=== PATIENT | male | born 2000 | race Caucasian/White ===

== ENCOUNTER 2023-11-23 12:29 | Emergency (ER) | payer SELFPAY ==
[2023-11-23 12:40] VITALS: BP 132/87; PULSE 73; RESP 18; TEMP 36.8; O2SAT 99; BMI 27.3
--- NOTE | 2023-11-23 12:50 | ED.DENTAL1 ---
HPI - Dental/Oral General Chief complaint: Dental/Oral Stated complaint: DENTAL PAIN Time Seen by Provider: 11/23/23 12:50 Source: patient Mode of arrival: walk-in Limitations: no limitations History of Present Illness HPI Narrative: patient here with a right mandibular toothache. About two years ago he has similar problem. He was actually in the process getting the tooth pulled but had an untoward reaction to his lidocaine local. This is the 1st bothered him since that time. He is not diabetic and has no immunocompromising diseases. He is not currently on any antibiotics. Related Data Home Medications Medication Instructions Recorded Confirmed No Known Home Medications 11/23/23 11/23/23 Allergies Allergy/AdvReac Type Severity Reaction Status Date / Time No Known Drug Allergies Allergy Verified 11/23/23 12:40 PFSH PFS Social History Smoking status: Current every day smoker Exam Narrative Exam Narrative: problem focused examination shows well-hydrated well-nourished pleasant young man. His mouth and oral cavity were examined. He has a near totally rotten tooth on the bottom right side premolar. There is no swelling the floor the mouth the gingival area does not show any abscess. Tongue protrudes in midline. There is no stridor or drooling. Phonation Bel[place]ian deglutition are normal. There is no facial swelling at all. Constitutional Vital Signs, click to edit/add: Last Vital Signs Temp 98.3 F 11/23/23 12:40 Pulse 73 11/23/23 12:40 Resp 18 11/23/23 12:40 BP 132/87 11/23/23 12:40 Pulse Ox 99 11/23/23 12:40 Course Vital Signs Vital signs: Vital Signs Temperature 98.3 F 11/23/23 12:40 Pulse Rate 73 11/23/23 12:40 Respiratory Rate 18 11/23/23 12:40 Blood Pressure 132/87 11/23/23 12:40 Pulse Oximetry 99 11/23/23 12:40 Temperature 98.3 F 11/23/23 12:40 Pulse Rate 73 11/23/23 12:40 Respiratory Rate 18 11/23/23 12:40 Blood Pressure 132/87 11/23/23 12:40 Pulse Oximetry 99 11/23/23 12:40 MDM - Dental/Oral MDM Narrative Medical decision making narrative: patient will be placed on antibiotics and is given a follow-up with a local dentist when his insurance kicks in again. No evidence of complications at this time. Discharge Plan Discharge Chief Complaint: Dental/Oral Clinical Impression: Toothache Patient Disposition: Home, Self-Care Time of Disposition Decision: 12:56 Prescriptions / Home Meds: No Action No Known Home Medications Additional Instructions: clindamycin/follow-up with local dentist. Warm saline rinses Stand Alone Forms: Portal Instructions Referrals: Physician,Non-Staff, MD [Primary Care Provider] - 1 week
[2023-11-23] MEDS: BENZOCAINE 30 ML, lidocaine HCL 15 ML MM (13:01)
== END 2023-11-23 13:03 | disposition home or self-care (01) ==
PROVIDERS: Emergency Provider Emergency Medicine Emergency Medical Services
DX: K08.89 Other specified disorders of teeth and supporting structures (principal); F17.210 Nicotine dependence, cigarettes, uncomplicated
CPT/HCPCS: 99283

== ENCOUNTER 2025-03-18 14:18 | Emergency (ER) | payer BC, SELFPAY ==
[2025-03-18 14:23] VITALS: BP 163/91; PULSE 68; TEMP 36.8; O2SAT 98; BMI 28.7
--- NOTE | 2025-03-18 14:33 | ED_ITS ---
HPI HPI - General Adult General Chief complaint: Dental/Oral Stated complaint: DENTAL ISSUE Time Seen by Provider: 03/18/25 14:20 Source: patient Mode of arrival: walk-in History of Present Illness HPI narrative: 24-year-old male to the emergency department with chief complaint of dental pain. Patient reports he has had pain in his right posterior lower molar for some time. He intended to get it fixed but had allergic reaction to lidocaine. He reports that he has been scared to go to the dentist since. He reports that over the last few days he has had increasing pain in the tooth. He intends to follow-up with dentistry but wants to get on an antibiotic and some ibuprofen in the meantime. Otherwise at his baseline health. No immunocompromising conditions. No swelling, redness or warmth of the face or neck. Related Data Previous Rx's ?Medication ?Instructions ?Recorded ibuprofen 800 mg tablet 800 mg PO Q8H PRN pain #20 t abs 03/18/25 penicillin V potassium 500 mg 500 mg PO Q6H 7 days #28 tabs 03/18/25 tablet Allergies Allergy/AdvReac Type Severity Reaction Status Date / Time No Known Drug Allergies Allergy Verified 11/23/23 12:40 Review of Systems ROS Status of ROS 10 or more systems reviewed and unremark able except as noted in history and below PFSH PFSH Social History Smoking status: Current every day smoker Little interest or pleasure in doing things: not at all Feeling down, depressed, or hopeless: not at all Exam Narrative Exam Narrative: VITALS: I have reviewed the triage vital signs. GENERAL: Well developed, well appearing adult in no acute distress. NEURO: Alert and oriented. Moves all extremities. Face is symmetric and expressive. EYES: PERRL. No scleral icterus or conjunctival injection. No discharge. HENT: Normocephalic, atraumatic. Hearing is grossly intact. Nares grossly patent and without discharge. Mucous membranes moist. Generally poor dentition. #31 painful to percussion, significant decay. No abscess NECK: No JVD. Patient moves neck without restriction. EXTREMITIES: Symmetric muscle bulk. No joint swelling. No clubbing, cyanosis, or deformity. SKIN: Warm and dry. Normal turgor. No rash or lesions appreciated. PSYCH: Mood, affect, and interaction is appropriate to the setting. Constitutional Vital Signs, click to edit/add: Last Vital Signs Temp 98.2 F 03/18/25 14:23 Pulse 68 03/18/25 14:23 Resp 18 03/18/25 14:23 BP 163/91 H 03/18/25 14:23 Pulse Ox 98 03/18/25 14:23 Course Vital Signs Vital signs: Vital Signs Temperature 98.2 F 03/18/25 14:23 Pulse Rate 68 03/18/25 14:23 Respiratory Rate 18 03/18/25 14:23 Blood Pressure 163/91 H 03/18/25 14:23 Pulse Oximetry 98 03/18/25 14:23 Temperature 98.2 F 03/18/25 14:23 Pulse Rate 68 03/18/25 14:23 Respiratory Rate 18 03/18/25 14:23 Blood Pressure 163/91 H 03/18/25 14:23 Pulse Oximetry 98 03/18/25 14:23 Medical Decision Making MDM Narrative Medical decision making narrative: 24-year-old male to the emergency department chief complaint of dental pain. Vital stable, the patient is afebrile. No evidence of deep space infection or complication. Will place him on penicillin and ibuprofen. Follow-up with dentist, he already has plans on which when he was going to call. Return precautions were discussed. All questions were answered. The patient was discharged home. Medical Records Medical records reviewed: Yes I reviewed the patient's medical records Discharge Plan Discharge Chief Complaint: Dental/Oral Clinical Impression: Toothache Patient Disposition: Home, Self-Care Time of Disposition Decision: 14:31 Condition: Good Mode of Transportation: Private Vehicle Prescriptions / Home Meds: New ibuprofen 800 mg tablet 800 mg PO Q8H PRN (Reason: pain) Qty: 20 0RF penicillin V potassium 500 mg tablet 500 mg PO Q6H 7 Days Qty: 28 0RF Print Language: Sudanese Instructions: Toothache (ED) Additional Instructions: Call the office of your primary care doctor to arrange for follow-up within the above-stated timeframe. Your ED visit was focused on your acute issue and does not replace primary care. You should review your labs, imaging, and diagnoses from this ED visit with your primary care physician. There may be non-emergent/ incidental findings that need further evaluation. You should review your vital signs including blood pressure with your PCP. If you were prescribed medications you should discuss possible side-effects and drug interactions with your pharm acist. Call 911 or go to the nearest Emergency Department if you develop any new or worsening symptoms. Follow-up with a dentist within the next 7 days. Referrals: Physician,Non-Staff, MD [Primary Care Provider] - 1 week
[2025-03-18 14:38] VITALS: BP 136/86; PULSE 82; O2SAT 98
== END 2025-03-18 14:39 | disposition home or self-care (01) ==
PROVIDERS: Emergency Provider Student in an Organized Health Care Education/Training Program; PCP Family Medicine
DX: K08.89 Other specified disorders of teeth and supporting structures (principal); F17.200 Nicotine dependence, unspecified, uncomplicated
CPT/HCPCS: 99283

== ENCOUNTER 2025-04-15 14:14 | Emergency (ER) | payer BC, SELFPAY ==
[2025-04-15 14:20] VITALS: BP 144/97; PULSE 77; TEMP 36.9; O2SAT 98; BMI 25.8
--- NOTE | 2025-04-15 14:35 | ED_ITS ---
HPI - Nausea/Vomiting/Diarrhea General Chief complaint: Nausea/Vomiting/Diarrhea Stated complaint: DIARRHEA VOMITING Time Seen by Provider: 04/15/25 14:28 Source: patient Mode of arrival: walk-in History of Present Illness HPI Narrative: 24 year old male presents to the ED for diarrhea. Onset was about 3 days ago. Denies fever, chills, N/V, urinary symptoms. Reports low abd cramping. Denies recent travel. Denies recent antibiotic use. Related Data Home Medications ?Medication ?Instructions ?Recorded ?Confirmed No Known Home Medications 04/15/2501/08 Allergies Allergy/AdvReac Type Severity Reaction Status Date / Time No Known Drug Allergies Allergy Verified 11/23/23 12:40 Review of Systems ROS Constitutional Denies: fever or chills Ears, nose, mouth, and throat Denies: throat pain or neck pain Cardiovascular Denies: chest pain Respiratory Denies: shortness of breath Gastrointestinal Reports: abdominal pain and diarrhea; Denies: nausea or vomiting Genitourinary Denies: painful urination, urinary frequency or urinary urgency Musculoskeletal Denies: back pain Neurological Denies: headache or dizziness PFSH PFSH Social History Smoking status: Current every day smoker Little interest or pleasure in doing things: not at all Feeling down, depressed, or hopeless: not at all Exam Constitutional Vital Signs, click to edit/add: Last Vital Signs Temp 98.4 F 04/15/25 14:20 Pulse 77 04/15/25 14:20 Resp 16 04/15/25 14:20 BP 144/97 H 04/15/25 14:20 Pulse Ox 98 04/15/25 14:20 Common normals: no apparent distress and oriented x3 General appearance: cooperative HENMT Common normals: moist oral mucous membranes Eye Common normals: conjunctivae normal and no scleral icterus Neck & C-Spine Common normals: supple Respiratory Common normals: normal respiratory effort Effort & inspection: able to speak in complete sentences and symmetric chest movement Cardio Common normals: regular rate and regular rhythm GI Common normals: Normal to inspection, nondistended, normoactive bowel sounds present, soft to palpation and non-tender Neuro Common normals: oriented x3 and moves all extremities Sensorium/orientation: awake and alert Speech: speech normal Course Vital Signs Vital signs: Vital Signs Temperature 98.4 F 04/15/25 14:20 Pulse Rate 77 04/15/25 14:20 Respiratory Rate 16 04/15/25 14:20 Blood Pressure 144/97 H 04/15/25 14:20 Pulse Oximetry 98 04/15/25 14:20 Temperature 98.4 F 04/15/25 14:20 Pulse Rate 77 04/15/25 14:20 Respiratory Rate 16 04/15/25 14:20 Blood Pressure 144/97 H 04/15/25 14:20 Pulse Oximetry 98 04/15/25 14:20 MDM - Nausea/Vomiting/Diarrhea MDM Narrative Medical decision making narrative: CBC and CMP were unremarkable. Stool cultures were ordered. The patient was given IV fluids with improvement. Findings were discussed. Follow up with pcp for a recheck, further evaluation and treatment. Medical Records Attestation: I reviewed the patient's medical records. Lab Data Attestation: I reviewed the patient's lab results. Labs: Lab Results 04/15/25 Range/Units 14:50 WBC 7.0 (4.0-11.0) 10^3/uL RBC 5.67 (4.70-6.10) 10^6/uL Hgb 17.6 (14.0-18.0) g/dL Hct 47.9 (42.0-54.0) % MCV 84.5 (80.0-94.0) fL MCH 31.0 (25.9-34.0) pg MCHC 36.7 H (29.9-35.2) g/dL RDW 11.7 (11.0-15.0) % Plt Count 235 (150-450) 10^3/uL MPV 10.5 (9.5-13.5) fL Neut % (Auto) 68.3 (43.0-75.0) % Lymph % (Auto) 16.3 L (20.5-60.0) % [place] % (Auto) 13.3 H (1.7-12.0) % Eos % (Auto) 1.6 (0.9-7.0) % Baso % (Auto) 0.4 (0.2-2.0) % Neut # (Auto) 4.8 (1.4-6.5) 10^3/uL Lymph # (Auto) 1.1 L (1.2-3.8) 10^3/uL [place] # (Auto) 0.9 H (0.3-0.8) 10^3/uL Eos # (Auto) 0.1 (0.0-0.7) 10^3/uL Baso # (Auto) 0.0 (0.0-0.1) 10^3/uL Abs Immat Gran (auto) 0.01 (0.00-0.03) 10^3/uL Imm/Tot Granulo (auto) 0.1 (0.0-0.5) % Sodium 138 (136-145) mmol/L Potassium 3.4 L (3.5-5.1) mmol/L Chloride 100 (98-107) mmol/L Carbon Dioxide 27.6 (21.0-32.0) mmol/L Anion Gap 13.8 BUN 17.0 (7.0-18.0) mg/dL Creatinine 0.86 (0.70-1.30) mg/dL Est GFR ( Amer) >60 (>=60 mL/min/1.73m^2) Est GFR (Non-Af Amer) >60 (>=60 mL/min/1.73m^2) BUN/Creatinine Ratio 19.8 Glucose 93 (74-106) mg/dL Calcium 9.7 (8.5-10.1) mg/dL Total Bilirubin 1.9 H (0.2-1.0) mg/dL AST 21 (15-37) U/L ALT 41 (16-63) U/L Alkaline Phosphatase 104 (46-116) U/L Total Protein 7.4 (6.4-8.2) g/dL Albumin 4.1 (3.4-5.0) g/dL Globulin 3.3 g/dL Albumin/Globulin Ratio 1.2 Discharge Plan Discharge Chief Complaint: Nausea/Vomiting/Diarrhea Clinical Impression: Diarrhea Patient Disposition: Home, Self-Care Time of Disposition Decision: 15:43 Condition: Good Mode of Transportation: Private Vehicle Prescriptions / Home Meds: No Action No Known Home Medications Print Language: Mauritian Instructions: Acute Diarrhea (ED) Additional Instructions: Return to the ER if your condition worsens. Referrals: Rico Yu MD [Primary Care Provider, Family Practice] - 1 week Discharge Date/Time: 04/15/25 15:53
[2025-04-15] MEDS: 0.9 % SODIUM CHLORIDE 1,000 ML 999 ML IV (14:41)
[2025-04-15 15:19] LABS: Basophils Percent Auto 0.4 % (0.2-2.0); Eosinophils Absolute Auto 0.1 10^3/uL (0.0-0.7); Eosinophils Percent Auto 1.6 % (0.9-7.0); Hematocrit 47.9 % (42.0-54.0); Hemoglobin 17.6 g/dL (14.0-18.0); Immature Granulocytes Abs Auto 0.01 10^3/uL (0.00-0.03); Immature Granulocytes Pct Auto 0.1 % (0.0-0.5); Lymphocytes Absolute Auto 1.1 10^3/uL (1.2-3.8); Lymphocytes Percent Auto 16.3 % (20.5-60.0); Mean Corpuscular HGB Conc 36.7 g/dL (29.9-35.2); Mean Corpuscular Volume 84.5 fL (80.0-94.0); Mean Platelet Volume 10.5 fL (9.5-13.5); Monocytes Absolute Auto 0.9 10^3/uL (0.3-0.8); Monocytes Percent Auto 13.3 % (1.7-12.0); Neutrophils Absolute Auto 4.8 10^3/uL (1.4-6.5); Neutrophils Percent Auto 68.3 % (43.0-75.0); Platelet Count 235 10^3/uL (150-450); Red Blood Count 5.67 10^6/uL (4.70-6.10); Red Cell Distribution Width 11.7 % (11.0-15.0)
[2025-04-15 15:28] LABS: Alanine Aminotransferase 41 U/L (16-63); Albumin Globulin Ratio 1.2; Albumin Level 4.1 g/dL (3.4-5.0); Alkaline Phosphatase 104 U/L (46-116); Anion Gap 13.8; Aspartate Amino Transferase 21 U/L (15-37); BUN Creatinine Ratio 19.8; Bilirubin Total 1.9 mg/dL (0.2-1.0); Calcium 9.7 mg/dL (8.5-10.1); Carbon Dioxide 27.6 mmol/L (21.0-32.0); Chloride 100 mmol/L (98-107); Estimated GFR (African America >60 (>=60 mL/min/1.73m^2); Estimated GFR (Non-African Ame >60 (>=60 mL/min/1.73m^2); Globulin 3.3 g/dL; Glucose 93 mg/dL (74-106); Potassium 3.4 mmol/L (3.5-5.1); Sodium 138 mmol/L (136-145); Total Protein 7.4 g/dL (6.4-8.2)
== END 2025-04-15 15:53 | disposition home or self-care (01) ==
PROVIDERS: Nurse Practitioner Family; Emergency Provider Emergency Medicine; PCP Family Medicine
DX: R19.7 Diarrhea, unspecified (principal); F17.200 Nicotine dependence, unspecified, uncomplicated
CPT/HCPCS: 36415; 80053; 85025; 87045; 87046; 87427; 87493; 99284